=== PATIENT | female | born 1945 | race Caucasian/White ===

== ENCOUNTER 2025-05-17 11:02 | Emergency (ER) | payer OTHER ==
[~2025-05-17] VITALS: Ht 157.5 cm; Wt 68.9 kg
--- NOTE | 2025-05-17 11:18 | ERN ---
ED Note History of Present Illness Stated Complaint: RUQ PAIN Chief Complaint: Abdominal Pain Time Seen by MD: 11:11 Dictation: PATIENT IS A 79-YEAR-OLD FEMALE COMING IN TODAY WITH RIGHT UPPER QUADRANT PAIN INTERMITTENTLY FOR THE LAST TWO YEARS. NO FEVER NO CHILLS NO NAUSEA VOMITING NO DIARRHEA SHE HAS NOT BEEN TO SEE HER PRIMARY CARE DOCTOR BECAUSE SHE FORGETS BAD ASKED HIM ABOUT IT WHEN SHE GOES. SHE RECENTLY MOVED IN WITH HER DAUGHTER A YEAR AGO AND SINCE SHE HAS BEEN HERE HAS NOT TOLD HER DOCTOR. NO CHEST PAIN NO BACK PAIN NO SOB Allergies: Coded Allergies: Penicillins (Unverified Allergy, Unknown, 05/17/25) Home Meds Active Scripts Dicyclomine HCl (Bentyl) 20 Mg Tab, 20 MG PO Q6HPRN PRN for ABDOMINAL PAIN/CRAMPS, #30 TAB Prov:LUCAS GARCIA [employer] 05/17/25 Past Medical History History: Not Applicable RN Note Reviewed/Agreed w/PFSH: Yes Review of System Dictation CONSTITUTIONAL: Negative except for HPI HEAD/FACE: Negative except for HPI EENT: Negative except for HPI RESPIRATORY: Negative except for HPI GASTROINTESTINAL/ABDOMINAL: Negative except for HPI right upper quadrant pain chronic GENITOURINARY: Negative except for HPI MUSCULOSKELETAL: Negative except for HPI INTEGUMENTARY: Negative except for HPI NEUROLOGICAL/PSYCH: Negative except for HPI HEMATOLOGIC/LYMPHATIC: Negative except for HPI All Systems Negative, Except as noted above. 13 point review of systems assessed and all negative except for above. Initial Vital Sign VS Vital Signs Date Time Temp Pulse Resp B/P (MAP) Pulse Ox O2 Delivery O2 Flow Rate FiO2 05/17/25 11:09 97.9 69 16 172/72 96 Room Air 0 05/17/25 14:03 21 Physical Exam Dictation Vital Signs reviewed General Appearance: Alert, oriented x 3, mild acute distress, well developed, nourished. Head and Face: non-traumatic. Eyes: PERRL, pink conjunctivas, eyelid no trauma, anterior chamber with arcus senilis. Ears: Pinnas intact and no signs of trauma or erythema ear canals clear and no discharge TM no erythema Nose: No discharge, no bleeding. Oropharynx: Mouth normal, tongue pink, pharynx clear,no erythema, tonsils no exudates, no abscesses noted, mucous membrane moist Neck: Supple, non-tender, no thyromegaly, no masses, no JVD, no bruits Breast:Deferred Chest:No tenderness, no crepitus, no paradoxical movement, no retractions Lungs:Clear, well-ventilated, symmetric, no rales, no wheezing, no rhonchi, no stridor, good breath sounds bilaterally Heart: Regular rate, regular rhythm, no murmur, no gallops Vascular: no peripheral edema, Abdomen: Soft, positive bowel sounds, nondistended, no guarding, Mild right upper quadrant pain without Chaudhari's Rectal: Deferred Genital: Deferred Neurological: Normal speech, motor function intact, sensory function intact Musculoskeletal: Neck nontender, full range of motion, back nontender, full range of motion, Extremities: nontender, full range of motion Skin: Color pink, dry, no turgor, no rash, no lacerations, no abrasions, no contusions. Lymphatic: Deferred Results (Laboratory/Radiology) Laboratory/Radiology Laboratory Tests Test 05/17/25 11:37 White Blood Count 6.4 K/uL (4.8-10.8) Red Blood Count 4.53 MIL/uL (4.00-5.50) Hemoglobin 10.7 g/dL (12.0-16.0) L Hematocrit 33.7 % (36-48) L Mean Corpuscular Volume 74.4 fL (79-99) L Mean Corpuscular Hemoglobin 23.6 pg (27.0-33.0) L Mean Corpuscular Hemoglobin Concent 31.8 g/dL (32.0-36.0) L Red Cell Distribution Width 17.6 % (11.0-15.5) H Platelet Count 277 K/uL (130-400) Mean Platelet Volume 10.7 fL (7.5-10.5) H Immature Granulocyte % (Auto) 0.5 % (0-1) Neutrophils (%) (Auto) 65.7 % (40.0-77.0) Lymphocytes (%) (Auto) 22.0 % (21.0-51.0) Monocytes (%) (Auto) 7.8 % (3.0-13.0) Eosinophils (%) (Auto) 2.7 % (0.0-8.0) Basophils (%) (Auto) 1.3 % (0.0-5.0) Neutrophils # (Auto) 4.2 K/uL (1.8-7.7) Lymphocytes # (Auto) 1.4 K/uL (1.0-4.8) Monocytes # (Auto) 0.5 K/uL (0.1-1.0) Eosinophils # (Auto) 0.17 K/uL (0.00-0.70) Basophils # (Auto) 0.08 K/uL (0.00-0.20) Absolute Immature Granulocyte (auto 0.03 K/uL (0-1) Nucleated Red Blood Cells 0.0 % (0.0-0.19) Red Blood Cell Morphology See comments Sodium Level 127 mmol/L (136-145) L Potassium Level 4.1 mmol/L (3.5-5.1) Chloride Level 94 mmol/L (101-111) L Carbon Dioxide Level 23 mmol/L (21-32) Blood Urea Nitrogen 7 mg/dL (7-18) Creatinine 0.9 mg/dL (0.5-1.0) Glomerular Filtration Rate Calc 66 mL/min (>90) Random Glucose 186 mg/dL (70-105) H Total Calcium 8.2 mg/dL (8.5-10.1) L Lipase 25 U/L (16-77) Right upper quadrant ultrasound demonstrates hepatic steatosis only no gallbladder disease SHE WILL BE DISCHARGED HOME WITH DIAGNOSIS OF DEHYDRATION BILIARY COLIC AND TOLD TO FOLLOW UP WITH HER PRIMARY CARE DOCTOR Labs Reviewed?: Yes ED Course ED Course Orders Procedure Category Date Status Time Cbc With Differential LAB 05/17/25 Complete 11:16 Urinalysis Profile LAB 05/17/25 Logged 11:16 Lipase LAB 05/17/25 Complete 11:16 Basic Metabolic Panel LAB 05/17/25 Complete 11:16 Us Abdominal Ruq\Ltd US 05/17/25 Resulted 11:18 Vital Signs Date Time Temp Pulse Resp B/P (MAP) Pulse Ox O2 Delivery O2 Flow Rate FiO2 05/17/25 14:03 97.9 69 16 172/72 96 Room Air* 0 21 05/17/25 11:09 97.9 69 16 172/72 96 Room Air 0 Medical Decision Making MDM MDM: DIFFERENTIAL DIAGNOSIS: CHOLELITHIASIS/CHOLEDOCHOLITHIASIS/BILIARY COLIC/PANCREATITIS/ELECTROLYTE IMBALANCE/DEHYDRATION RATIONALE: TESTS CONSIDERED AND ORDERED SECONDARY TO SHARED DECISION MAKING INCLUDE: PREVIOUS OUTSIDE RECORDS REVIEWED: OLD ER VISITS. RISK OF COMPLICATION AND/OR MORBIDITY OR MORTALITY OF PATIENT MANAGEMENT: NONE MEDICATIONS-PER MEDICATION RECONCILIATION NEED FOR HOSPITALIZATION: PATIENT DOES NOT MEET CRITERIA FOR HOSPITALIZATION. NONE NEED FOR EMERGENCY MAJOR/MINOR SURGERY: NO THERE ARE NO SOCIAL CONCERNS WITH THIS PATIENT. PRESCRIPTION DRUG MANAGEMENT TYLENOL 650 [id number] PRESCRIPTIONS WILL INCLUDE SYMPTOMATIC CARE PATIENT'S PRIOR EXTERNAL MEDICAL RECORDS FROM OTHER ER VISITS WERE REVIEWED BY ME INDICATED. PRIOR TESTING AND RESULTS FROM PREVIOUS VISITS WERE REVIEWED. PRIOR TESTS WERE TAKEN INTO ACCOUNT WITH MEDICAL DECISION MAKING AND RESOURCE UTILIZATION, INDEPENDENT HISTORIAN/HISTORIANS WERE USED TO OBTAIN COMPLETE MEDICAL HISTORY. I INDEPENDENTLY INTERPRETED THE TEST THAT WERE PERFORMED, RESULTS WERE REVIEWED BY ME AND CONSIDERED FINDINGS ON RADIOLOGY IF ORDERED. MEDICAL MANAGEMENT AND EXAMINATION INTERPRETATION DISCUSSIONS WERE HAD BY ME WITH OTHER QUALIFIED HEALTHCARE PROFESSIONALS INDICATED FOR THE PATIENT'S CARE. DX & DISP Disposition: Discharge Departure Impression: Primary Impression: Biliary colic symptom Additional Impressions: Stage 3 chronic kidney disease, Dehydration, Uncontrolled diabetes mellitus, Hypocalcemia, Fatty liver Condition: Stable Scripts Dicyclomine HCl (Bentyl) 20 Mg Tab 20 MG PO Q6HPRN PRN for ABDOMINAL PAIN/CRAMPS, #30 TAB Prov: LUCAS GARCIA [employer] 05/17/25 Additional Instructions: FOLLOW-UP WITH PRIMARY CARE PROVIDER IN 1 TO 2 DAYS. TAKE MEDICATIONS DIRECTED HERE IN THE EMERGENCY ROOM. OKAY TO CONTINUE HOME MEDICATIONS UNLESS OTHERWISE DISCUSSED DURING YOUR VISIT IN THE EMERGENCY ROOM TODAY. RETURN TO YOUR NEAREST EMERGENCY ROOM IF SYMPTOMS WORSEN OR IF THERE IS NO IMPROVEMENT. CALL 911 IF YOU NEED IMMEDIATE ASSISTANCE. TAKE TYLENOL OR MOTRIN [id number] NEEDED AND IF NO CONTRAINDICATIONS ARE PRESENT. INCREASE ORAL HYDRATION. A WOUND CULTURE OR URINE CULTURE WAS ORDERED HERE IN THE EMERGENCY ROOM DEPARTMENT PLEASE FOLLOW-UP WITH PRIMARY CARE PROVIDER AND ADVISE THEM TO GET REPEAT PORTS FROM OUR FACILITY. IF YOU HAD ANY ELMA WRAP/SPLINTS THAT WERE APPLIED HERE, PLEASE DO NOT REMOVE THEM UNTIL YOU SEE YOUR PRIMARY CARE OR SPECIALTY. TAKE BENTYL DIRECTED FOR YOUR ABDOMINAL PAIN. INCREASE YOUR WATER INTAKE. FOLLOW UP WITH YOUR PRIMARY CARE DOCTOR IN THE NEXT ONE TWO DAYS FOR MANAGEMENT FOLLOW A LOW-FAT DIET. Referrals: SELF,REFERRAL (PCP) Time of Disposition: 16:53 I have reviewed the case, and I agree with, Diagnosis and Plan LUCAS GARCIA NP May 17, 2025 11:18
[2025-05-17 11:49] LABS: IMMATURE GRANULOCYTE ABSOLUTE 0.03 K/uL (0-1); NUCLEATED RED BLOOD CELLS 0.0 % (0.0-0.19); PLATELET COUNT (AUTO) 277 K/uL (130-400); RED BLOOD CELL COUNT(AUTO) 4.53 MIL/uL (4.00-5.50); RED CELL DISTRIBUTION WIDTH 17.6 % (11.0-15.5); WHITE BLOOD COUNT (AUTO) 6.4 K/uL (4.8-10.8)
[2025-05-17 12:01] LABS: CREATININE 0.9 mg/dL (0.5-1.0); GLOMERULAR FILTR. RATE CALC 66.0 mL/min (>90); GLUCOSE,RANDOM 186.0 mg/dL (70-105); SODIUM SERUM 127.0 mmol/L (136-145); UREA NITROGEN, BLOOD 7.0 mg/dL (7-18)
--- NOTE | 2025-05-17 12:25 | HMCIMG ---
EXAM: US Abdomen, Right Upper Quadrant. CLINICAL HISTORY: RIGHT UPPER QUADRANT PAIN/CHRONIC TECHNIQUE: Right upper quadrant sonography performed with image documentation. COMPARISON: None provided. FINDINGS: LIVER: Within normal limits in size, the right hepatic lobe measures up to 15.0 cm in craniocaudal dimension. There is increased echogenicity of the hepatic parenchyma that reflect hepatic steatosis. No mass. GALLBLADDER: The gallbladder is surgically absent. COMMON BILE DUCT: Within normal limits in size, measuring 0.5 cm. PANCREAS: Obscured by overlying bowel gas. RIGHT KIDNEY: Normal renal contours. Several renal cysts are noted, the largest measures up to 2.4 x 3.0 x 3.0 cm. No renal mass or calculus. No hydronephrosis. IMPRESSION: 1. No acute intraabdominal findings. 2. Hepatic steatosis. 3. Right renal cysts. /[place]ord
[2025-05-17 14:03] VITALS: BP 172/72; PULSE 69; RESP 16; TEMP 97.9; O2SAT 96
[2025-05-17] MEDS ORDERED: DICY20TA2 PO (17:04)
== END 2025-05-17 17:11 | disposition home or self-care (01) ==
LOC: EDH 11:02
DX: K80.50 Calculus of bile duct without cholangitis or cholecystitis without obstruction (principal); E11.22 Type 2 diabetes mellitus with diabetic chronic kidney disease; E11.65 Type 2 diabetes mellitus with hyperglycemia; N18.30 Chronic kidney disease, stage 3 unspecified; E83.51 Hypocalcemia; E86.0 Dehydration; Z88.0 Allergy status to penicillin
CPT/HCPCS: 36415; 76705; 80048; 83690; 85025; 99284